=== PATIENT | female | born 1950 | race African-American/Black ===

== ENCOUNTER → 2019-09-04 | Outpatient (CLI) | payer MEDICARE ==
[2019-09-04 14:54] LABS: HEMATOCRIT 38.1 % (37.0-47.0); HEMOGLOBIN 12.7 g/dl (12.5-16.0); MEAN CELL VOLUME 92 fl (80.0-100.0); MEAN CORPUSCULAR HEMOGLOBIN 31 pg (27.0-31.0); MEAN CORPUSCULAR HGB CONC 33 g/dl (33.0-37.0); MEAN PLATELET VOLUME 11.1 fl (7.4-10.4); PLATELET COUNT 276 K/mm3 (130-400); RED BLOOD COUNT 4.13 M/mm3 (4.10-5.30); REDCELL DISTRIBUTION WIDTH-CV 13.2 % (11.5-14.5)
[2019-09-04 15:07] LABS: CALCIUM 9.1 mg/dL (8.4-10.2); CREATININE, serum 0.89 (0.52-1.25); POTASSIUM 4.2 mmol/L (3.4-5.0)
== END ==
LOC: COL.LAB 14:19
PROVIDERS: Internal Medicine Interventional Cardiology
DX: I73.9 Peripheral vascular disease, unspecified (principal)

== ENCOUNTER → 2019-09-16 | Outpatient (CLI) | payer MEDICARE ==
[2019-09-16 09:48] LABS: HEMOGLOBIN 13.1 g/dl (12.5-16.0); MEAN CELL VOLUME 92 fl (80.0-100.0); MEAN CORPUSCULAR HEMOGLOBIN 30 pg (27.0-31.0); MEAN CORPUSCULAR HGB CONC 33 g/dl (33.0-37.0); MEAN PLATELET VOLUME 10.6 fl (7.4-10.4); PLATELET COUNT 318 K/mm3 (130-400); RED BLOOD COUNT 4.34 M/mm3 (4.10-5.30); REDCELL DISTRIBUTION WIDTH-CV 12.9 % (11.5-14.5)
[2019-09-16 09:55] LABS: PROTHROMBIN TIME 11.9 SECONDS (9.7-12.8)
[2019-09-16 10:00] LABS: CALCIUM 9.4 mg/dL (8.4-10.2); CREATININE, serum 0.95 (0.52-1.25); POTASSIUM 3.9 mmol/L (3.4-5.0)
== END ==
LOC: COL.LAB 09:05
PROVIDERS: Internal Medicine Interventional Cardiology
DX: I73.9 Peripheral vascular disease, unspecified (principal); R60.0 Localized edema

== ENCOUNTER → 2019-10-11 | Outpatient (CLI) | payer MEDICARE ==
[2019-10-11 11:39] LABS: PROTHROMBIN TIME 11.3 SECONDS (9.7-12.8)
[2019-10-11 11:40] LABS: HEMATOCRIT 38.1 % (37.0-47.0); HEMOGLOBIN 12.4 g/dl (12.5-16.0); MEAN CELL VOLUME 93 fl (80.0-100.0); MEAN CORPUSCULAR HEMOGLOBIN 30 pg (27.0-31.0); MEAN CORPUSCULAR HGB CONC 33 g/dl (33.0-37.0); MEAN PLATELET VOLUME 10.9 fl (7.4-10.4); PLATELET COUNT 302 K/mm3 (130-400); RED BLOOD COUNT 4.11 M/mm3 (4.10-5.30); REDCELL DISTRIBUTION WIDTH-CV 13.2 % (11.5-14.5)
[2019-10-11 11:49] LABS: CALCIUM 9.2 mg/dL (8.4-10.2); CHOLESTEROL RISK RATIO 3.9; CREATININE, serum 1.1 (0.52-1.25); POTASSIUM 4.3 mmol/L (3.4-5.0)
== END ==
LOC: COL.LAB 11:08
PROVIDERS: Internal Medicine Interventional Cardiology
DX: I73.9 Peripheral vascular disease, unspecified (principal); E78.5 Hyperlipidemia, unspecified

== ENCOUNTER → 2019-11-12 | Outpatient (CLI) | payer MEDICARE ==
[2019-11-12 12:43] LABS: HEMATOCRIT 39.3 % (37.0-47.0); HEMOGLOBIN 12.9 g/dl (12.5-16.0); MEAN CELL VOLUME 93 fl (80.0-100.0); MEAN CORPUSCULAR HEMOGLOBIN 31 pg (27.0-31.0); MEAN CORPUSCULAR HGB CONC 33 g/dl (33.0-37.0); MEAN PLATELET VOLUME 11.9 fl (7.4-10.4); PLATELET COUNT 267 K/mm3 (130-400); RED BLOOD COUNT 4.23 M/mm3 (4.10-5.30); REDCELL DISTRIBUTION WIDTH-CV 13.3 % (11.5-14.5)
[2019-11-12 12:52] LABS: CALCIUM 9.3 mg/dL (8.4-10.2); CREATININE, serum 0.98 (0.52-1.25); POTASSIUM 4.4 mmol/L (3.4-5.0)
== END ==
LOC: COL.LAB 12:15
PROVIDERS: Nurse Practitioner
DX: I10 Essential (primary) hypertension (principal); I73.9 Peripheral vascular disease, unspecified

== ENCOUNTER → 2019-11-14 | Outpatient (CLI) | payer MEDICARE | LOC: ZCOL.LAB 18:02 | DX: I73.9 Peripheral vascular disease, unspecified (principal) ==